=== PATIENT | male | born 1955 | race African-American/Black ===

== ENCOUNTER 2017-01-09 12:31 | Day surgery (SDC) | payer BC ==
[~2017-01-09] VITALS: Ht 182.9 cm; Wt 85.7 kg
[2017-01-09 14:18] VITALS: Ht 182.9 cm; Wt 85.7 kg
[2017-01-09] MEDS ORDERED: LIDOCAINE 2% (SDV) 5 ML INJ ONE (16:12)
[2017-01-09] MEDS ORDERED: FENTAnyl 50 MCG/ML VIAL ONE (16:12)
[2017-01-09] MEDS ORDERED: PROPOFOL 40 ML ONE (16:12)
[2017-01-09 17:23] VITALS: BP 154/77; PULSE 50; RESP 15
--- NOTE | 2017-01-10 02:15 | GILP ---
DATE OF PROCEDURE: 01/09/2017 DATE: 01/09/2017 NAME OF PROCEDURE: Colonoscopy with snare polypectomy, colonoscopy with ablation, colonoscopy with biopsies and localization tattoo. SURGEON: Faizan Brewster MD. PREMEDICATION: Monitored anesthesia care by anesthesiologist. INSTRUMENT USED: Olympus colonoscope. PREPARATION: Adequate. TECHNIQUE: After informed consent, with the patient/relatives understanding the procedure, its indic ations potential risks and complications, including but not limited to: allergic reaction, bleeding, perforation, infection, missed lesions and, after all pertinent questions were answered to the gibran ent's satisfaction, the patient/relatives signed the witnessed informed consent. Following this, premedication was administered slowly IV push by under careful cardiovascular and re spiratory monitoring with pulse oximetry, automatic blood pressure and teletypesetter monitor. Once the sedati ve effect was achieved, the patient was placed in the left lateral decubitus position, digital recta l examination was performed. The colonoscope was then introduced and advanced under visual control throughout all segments of the colon including: the rectum, sigmoid, descending colon, splenic flexu re, transverse colon, hepatic flexure, ascending colon and finally reaching the cecum which was lisa rly identified by transillumination, finger indentation and the ileocecal valve. Careful examinatio n of the mucosa of the lower gastrointestinal tract both on insertion as well as withdrawal of the i nstrument disclosed the following findings: Rectal Examination: No evidence of perirectal disease, no masses. Colonic Mucosa: There is a 4 mm sessile polyp in the cecum, which was ablated with biopsy forceps. There is an 8 mm polyp in the mid ascending colon, which was snared and retrieved. There is a very large, more than 6 cm broad pedicle, atypical polypoid structure in what appears to be the proximal transverse colon, which is relatively soft to the touch and superficially ulcerated. Multiple biops ies were obtained and the base area was tattooed for localization. There is mild diverticulosis in the left side of the colon. Otherwise no significant abnormalities are noted. The instrument was w ithdrawn reexamining the mucosa in detail. No additional abnormalities are noted with exception of moderate sized internal hemorrhoids. The instrument was then withdrawn, the patient tolerated the procedure well and was transferred out of the [facility]oscopy [facility] awake and in good condition to continue recovery under observation. IMPRESSION: 1. Large, more than 6 cm broad pedicle, atypical appearing polypoid structure in the proximal trans verse colon with superficial ulceration. Multiple biopsies were obtained. The base of the polyp wa s tattooed for localization. 2. An 8 mm polyp in the mid ascending colon, snared and retrieved. 3. A 4 mm polyp in the cecum, ablated. 4. Mild diverticulosis in the left side of the colon. 5. Moderate sized internal hemorrhoids. PLAN: Pathology will be reviewed as soon as available. CT of the abdomen and pelvis will be reques angelica. Surgical evaluation will be requested as well. Dictated By: FAIZAN BREWSTER MS/COSMO Conf#: [id number] DID#: [id number] CC: FAIZAN BREWSTER;*EndCC*
== END 2017-01-11 08:24 | disposition home or self-care (01) ==
LOC: GIL 12:31
PROVIDERS: ATTEND Internal Medicine Gastroenterology
DX: Z12.11 Encounter for screening for malignant neoplasm of colon (principal); D12.0 Benign neoplasm of cecum; D12.3 Benign neoplasm of transverse colon; D12.2 Benign neoplasm of ascending colon; K57.90 Diverticulosis of intestine, part unspecified, without perforation or abscess without bleeding; K64.8 Other hemorrhoids; E78.5 Hyperlipidemia, unspecified; Z85.89 Personal history of malignant neoplasm of other organs and systems
CPT/HCPCS: 45380; 45381; 88305; J3010